=== PATIENT | male | born 1990 | race Two or more races ===

== ENCOUNTER 2020-03-23 20:45 | Emergency (ER) | payer SELFPAY ==
[~2020-03-23] VITALS: Ht 165.1 cm; Wt 68.0 kg
[2020-03-23 20:59] VITALS: BP 138/82
[2020-03-23] MEDS ORDERED: Ketorolac 60mg Inj IM ONE (21:15)
[2020-03-23] MEDS ORDERED: IBUPROFEN600 M1 ORAL (21:51)
[2020-03-23] MEDS ORDERED: ROBAXIN-500MG ORAL (22:00)
[2020-03-23 22:08] VITALS: BP 130/83
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
== END 2020-03-23 22:08 | disposition home or self-care (01) ==
LOC: EMR 21:05
DX: M54.5 Low back pain (principal); R07.9 Chest pain, unspecified; V43.52XA Car driver injured in collision with other type car in traffic accident, initial encounter; Y92.410 Unspecified street and highway as the place of occurrence of the external cause
CPT/HCPCS: 71046; 72020; 96372; 99283